=== PATIENT | male | born 1980 | race Caucasian/White ===

== ENCOUNTER → 2024-03-31 12:59 | Outpatient (REF) | payer MEDICARE, BC, SELFPAY | LOC: MRI 3T 12:59 | PROVIDERS: ATTENDING PHYSICIAN Psychiatry & Neurology Neurology; FAMILY PHYSICIAN Internal Medicine | DX: G35 Multiple sclerosis (principal) | CPT/HCPCS: 72146 ==

== ENCOUNTER → 2024-04-01 11:11 | Outpatient (REF) | payer MEDICARE, BC, SELFPAY | LOC: MRI 3T 11:11 | PROVIDERS: ATTENDING PHYSICIAN Psychiatry & Neurology Neurology | DX: G35 Multiple sclerosis (principal) | CPT/HCPCS: 70551; 72141 ==

== ENCOUNTER → 2025-03-21 09:44 | Outpatient (REF) | payer MEDICARE, BC, SELFPAY | LOC: MRI 3T 09:44 | PROVIDERS: ATTENDING PHYSICIAN Psychiatry & Neurology Neurology; FAMILY PHYSICIAN Internal Medicine | DX: G35 Multiple sclerosis (principal) | CPT/HCPCS: 70551; 72141 ==